=== PATIENT | female | born 1950 | race African-American/Black ===

== ENCOUNTER 2020-12-09 16:27 | Emergency (ER) | payer BC, OTHER ==
[~2020-12-09] VITALS: Ht 162.6 cm; Wt 181.4 kg
[2020-12-09 17:17] LABS: Urine Bacteria NONE SEEN /hpf (None Seen); Urine Blood 1+ /uL (Negative); Urine Hyaline Cast FEW /lpf (0 - 2); Urine Specific Gravity 1.023 (1.001-1.035); Urine WBC 1 /hpf (0 - 5)
[2020-12-09 23:04] LABS: Basophils # (auto) 0.1 10 ^3/uL (0-0.2); Basophils % (auto) 0.6 % (0.0-2.0); Eosinophils # (auto) 0.1 10 ^3/uL (0-0.8); Hemoglobin 14.9 g/dL (12.2-16.2); Lymphocytes # (auto) 5.2 10 ^3/uL (0.4-5.4); Lymphocytes % (auto) 37.4 % (10.0-50.0); Mean Corpuscular Hemoglobin 29.8 pg (28.0-32.0); Mean Corpuscular Hgb Conc. 33.1 g/dL (32.0-36.0); Monocytes # (auto) 0.7 10 ^3/uL (0-1.3); Monocytes % (auto) 5.3 % (0.0-12.0); Neutrophils # (auto) 7.8 10 ^3/uL (1.6-8.6); Neutrophils % (auto) 55.7 % (37.0-80.0); Nucleated Red Blood Cells % 0.1 %; Platelet Count (auto) 256 10^3/uL (140-450); Red Cell Distribution Width 14.9 % (11.8-14.3)
[2020-12-09 23:21] LABS: INR 1.09 (0.9-1.15); Partial Thromboplastin Time 22.5 sec (23.0-31.2)
[2020-12-09 23:45] LABS: Alanine Aminotransferase 56 U/L (13-56); Albumin 3.5 g/dL (3.4-5.0); Anion Gap 13 (5-15); Aspartate Aminotransferase 59 U/L (15-37); BUN/Creatinine Ratio 18.9; Blood Urea Nitrogen 20 mg/dL (7-18); Calcium 10.1 mg/dL (8.5-10.1); Carbon Dioxide 22 mmol/L (21-32); Chloride 100 mmol/L (98-107); GFR African American 66 mL/min; GFR Non-African American 55 mL/min; Glucose 120 mg/dL (74-106); Potassium 4.4 mmol/L (3.5-5.1); Sodium 135 mmol/L (136-145)
[2020-12-09 23:49] LABS: Lactic Acid w/Reflex 2.4 mmol/L (0.4-2.0)
[2020-12-09 23:50] LABS: Alkaline Phosphatase 93 U/L (45-117); Total Protein 8.7 g/dL (6.4-8.2)
[2020-12-10] MEDS ORDERED: IOHEXOL 350 MG/ML 100ML IJ ONE (01:02)
[2020-12-10] MEDS ORDERED: cefTRIAXone 1GM/50ML D5W 50 ML IV ONE (02:00)
[2020-12-10] MEDS ORDERED: HYDROcodone-ACET 5/325MG TAB PO ONE (02:15)
[2020-12-10 03:04] VITALS: BP 107/65
== END 2020-12-10 02:58 | disposition home or self-care (01) ==
LOC: ER 16:27
DX: M25.571 Pain in right ankle and joints of right foot (principal); R79.89 Other specified abnormal findings of blood chemistry; R74.01 Elevation of levels of liver transaminase levels; I11.0 Hypertensive heart disease with heart failure; I50.9 Heart failure, unspecified; Z87.440 Personal history of urinary (tract) infections; Z88.6 Allergy status to analgesic agent
CPT/HCPCS: 36415; 71275; 73700; 74176; 80053; 81001; 82962; 83605; 83880; 84484; 85025; 85379; 85610; 85730; 87040; 87086; 96365; 99285; J0696; Q9967

== ENCOUNTER 2021-01-29 23:20 | Emergency (ER) | payer BC ==
[~2021-01-29] VITALS: Ht 162.6 cm; Wt 181.4 kg
[2021-01-30 00:13] LABS: Basophils # (auto) 0.1 10 ^3/uL (0-0.2); Basophils % (auto) 0.4 % (0.0-2.0); Eosinophils # (auto) 0.2 10 ^3/uL (0-0.8); Eosinophils % (auto) 1.4 % (0.0-7.0); Hematocrit 43.5 % (36.0-46.0); Lymphocytes # (auto) 5.2 10 ^3/uL (0.4-5.4); Lymphocytes % (auto) 39.6 % (10.0-50.0); Mean Corpuscular Hemoglobin 28.8 pg (28.0-32.0); Mean Corpuscular Hgb Conc. 32.1 g/dL (32.0-36.0); Mean Corpuscular Volume 89.7 fL (80.0-100.0); Monocytes # (auto) 0.8 10 ^3/uL (0-1.3); Monocytes % (auto) 6.3 % (0.0-12.0); Neutrophils # (auto) 6.8 10 ^3/uL (1.6-8.6); Neutrophils % (auto) 52.3 % (37.0-80.0); Platelet Count (auto) 224 10^3/uL (140-450); Red Blood Cells 4.86 10^6/uL (4.0-5.20); Red Cell Distribution Width 15.3 % (11.8-14.3); White Blood Cell 13.1 10^3/uL (4.4-10.8)
[2021-01-30 00:30] LABS: INR 1.01 (0.9-1.15); Partial Thromboplastin Time 21.4 sec (23.0-31.2)
[2021-01-30 00:34] LABS: Albumin 3.3 g/dL (3.4-5.0); Anion Gap 6 (5-15); BUN/Creatinine Ratio 16.3; Blood Urea Nitrogen 21 mg/dL (7-18); Calcium 9.6 mg/dL (8.5-10.1); Carbon Dioxide 25 mmol/L (21-32); Chloride 107 mmol/L (98-107); GFR African American 53 mL/min; GFR Non-African American 44 mL/min; Glucose 118 mg/dL (74-106); Potassium 4.7 mmol/L (3.5-5.1); Sodium 138 mmol/L (136-145)
[2021-01-30 00:36] LABS: Alanine Aminotransferase 59 U/L (13-56); Alkaline Phosphatase 92 U/L (45-117); Aspartate Aminotransferase 50 U/L (15-37); Bilirubin, Total 0.5 mg/dL (0.2-1.0); Total Protein 8.2 g/dL (6.4-8.2)
[2021-01-30 08:16] VITALS: BP 136/91
== END 2021-01-30 08:43 | disposition home or self-care (01) ==
LOC: ER 23:30
DX: M19.012 Primary osteoarthritis, left shoulder (principal); M19.011 Primary osteoarthritis, right shoulder; E44.1 Mild protein-calorie malnutrition; E11.9 Type 2 diabetes mellitus without complications; I10 Essential (primary) hypertension; Z68.44 Body mass index [BMI] 60.0-69.9, adult; Z88.6 Allergy status to analgesic agent
CPT/HCPCS: 36415; 73020; 80053; 83880; 84484; 85025; 85610; 85730; 93005